=== PATIENT | male | born 2000 | race Two or more races ===

== ENCOUNTER 2018-03-11 06:52 | Emergency (ER) | payer SELFPAY ==
[~2018-03-11] VITALS: Ht 177.8 cm; Wt 79.8 kg
[~2018-03-11 06:52] MED LIST: ACET325T53 MC
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
--- NOTE | 2018-03-11 07:14 | NUR ---
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
--- NOTE | 2018-03-11 07:15 | NUR ---
ENDORSED TO JOSE MONTAGUE. STABLE CONDTION. VSS. NAD
[2018-03-11] MEDS ORDERED: ACETAMINOPHEN ES 500 MG TABLET PO ONE (07:30)
[2018-03-11] MEDS ORDERED: ACETAMINOPHEN ES 500 MG TABLET ONE (07:39)
--- NOTE | 2018-03-11 07:45 | NUR ---
TOMÁS AT TO INTERVIEW PT.
--- NOTE | 2018-03-11 07:54 | NUR ---
TOMÁS HARRELL ([facility] #[id number]) AT
--- NOTE | 2018-03-11 08:30 | NUR ---
DPatient discharged to home in stable condition. Written and verbal after care instructions given. Patient verbalizes understanding of instruction.
[2018-03-11 08:50] VITALS: BP 128/75
== END 2018-03-11 08:53 | disposition home or self-care (01) ==
LOC: ER 06:55
DX: S02.652A Fracture of angle of left mandible, initial encounter for closed fracture (principal); W50.0XXA Accidental hit or strike by another person, initial encounter; Y93.89 Activity, other specified; Y92.29 Other specified public building as the place of occurrence of the external cause; Y99.8 Other external cause status
CPT/HCPCS: 70486; 99284; A4606; Z7610

== ENCOUNTER 2018-05-30 18:35 | Emergency (ER) | payer MEDICAID, OTHER ==
[~2018-05-30] VITALS: Ht 177.8 cm; Wt 78.9 kg
[2018-05-30 19:20] LABS: BASOPHILS % (AUTO) 0.2 % (0.0-2.0); EOSINOPHILS % (AUTO) 0.8 % (0.0-6.0); HEMATOCRIT 45 % (39-51); HEMOGLOBIN 15.3 g/dL (13.5-17.5); LYMPHOCYTES # (AUTO) 1.4 /CMM (0.8-4.8); LYMPHOCYTES % (AUTO) 17.6 % (20.0-44.0); MEAN CORPUSCULAR HGB CONC 34 g/dl (31.0-36.0); MEAN CORPUSCULAR VOLUME 88 fL (80-96); MONOCYTES # (AUTO) 0.5 /CMM (0.1-1.30); MONOCYTES % (AUTO) 6.6 % (2.0-12.0); NEUTROPHILS % (AUTO) 74.8 % (43.0-81.0); PLATELET COUNT (AUTO) 218 /CMM (150-450); RDW COEFFICIENT OF VARIATION 12.5 (11.5-15.0)
[2018-05-30 19:27] LABS: CALCIUM, SERUM 9.1 mg/dL (8.5-10.1)
[2018-05-30] MEDS ORDERED: IV NS 0.9% 1,000 ML BAG IV ONE (19:30)
[2018-05-30] MEDS ORDERED: ACETAMINOPHEN 325 MG TABLET PO ONE (19:30)
--- NOTE | 2018-05-30 19:30 | NUR ---
IV #20G LEFT AC, NOTED WITH GOOD VENOUS RETURN
[2018-05-30 19:33] LABS: ALBUMIN 4.2 g/dL (3.4-5.0); BILIRUBIN,DIRECT 0.1 mg/dL (0.0-0.2); BILIRUBIN,TOTAL 0.3 mg/dL (0.2-1.0); TOTAL PROTEIN, SERUM 7.1 g/dL (6.4-8.2)
[2018-05-30] MEDS ORDERED: IOHEXOL-300 100 ML VIAL IV ONE (19:41)
[2018-05-30] MEDS ORDERED: IV NS 0.9% 250 ML IV ONE (19:41)
[2018-05-30] MEDS ORDERED: CT SWABBABLE VALVE TRANS SET 1 EA INFUS.SET MC ONE (19:41)
--- NOTE | 2018-05-30 19:45 | NUR ---
PT FOR CT VIA [facility]
--- NOTE | 2018-05-30 19:55 | NUR ---
PATIENT BACK FROM CT
[2018-05-30] MEDS ORDERED: ACETAMINOPHEN 325 MG TABLET ONE (19:59)
--- NOTE | 2018-05-30 20:07 | NUR ---
PATIENT MEDICATED ORDERED
[2018-05-30 20:53] VITALS: BP 118/78
--- NOTE | 2018-05-30 20:55 | NUR ---
PATIENT DISCHARGED IN STABLE CONDITION, VERBALIZES UNDERSTANDING OF D/C ORDERS. COPIES OF LAB WORK AND CT SCAN GIVEN. PRESCRIPTION GIVEN. PATIENT AMBULATORY WITH STEADY GAIT
== END 2018-05-30 20:54 | disposition home or self-care (01) ==
LOC: ER 18:39
DX: J06.9 Acute upper respiratory infection, unspecified (principal); E86.0 Dehydration; R10.11 Right upper quadrant pain; R07.81 Pleurodynia; Z87.828 Personal history of other (healed) physical injury and trauma
CPT/HCPCS: 36415; 74177; 80048; 80076; 85025; 96360; 99285; A4606; J7030; J7050; Q9967; Z7610

== ENCOUNTER 2019-04-30 02:41 | Emergency (ER) | payer OTHER ==
[~2019-04-30] VITALS: Ht 180.3 cm; Wt 80.3 kg
[2019-04-30 02:56] VITALS: BP 124/76
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
[2019-04-30] MEDS ORDERED: KETOROLAC TROMETHAMINE INJ 60 MG/2 ML VIAL IM ONE ×2 (02:58→03:00)
--- NOTE | 2019-04-30 03:18 | NUR ---
RADIOLOGY AT BEDSIDE FOR XRAY
== END 2019-04-30 04:00 | disposition home or self-care (01) ==
LOC: ER 02:45
DX: S83.421A Sprain of lateral collateral ligament of right knee, initial encounter (principal); S83.411A Sprain of medial collateral ligament of right knee, initial encounter; F17.200 Nicotine dependence, unspecified, uncomplicated; Z98.890 Other specified postprocedural states; W18.39XA Other fall on same level, initial encounter; Y93.66 Activity, soccer; Y92.39 Other specified sports and athletic area as the place of occurrence of the external cause; Y99.8 Other external cause status
CPT/HCPCS: 29505; 73564; 96372; 99283; J1885

== ENCOUNTER 2024-03-14 18:11 | Emergency (ER) | payer MEDICAID, OTHER ==
[~2024-03-14] VITALS: Ht 177.8 cm; Wt 83.5 kg
[2024-03-14] MEDS: KETOROLAC TROMETHAMINE 15 MG/ML VIAL IM ONE (18:02)
[2024-03-14] MEDS ORDERED: KETOROLAC TROMETHAMINE 15 MG/ML VIAL ONE (18:59)
[2024-03-14] MEDS ORDERED: HYDR-4209 PO (20:54)
[2024-03-14] MEDS ORDERED: IBUP-1955 PO (20:54)
[2024-03-14] MEDS ORDERED: ACET-2605 PO (20:54)
[2024-03-14] MEDS ORDERED: HYDROCODONE/APAP 5/325MG TABLET ONE (21:00)
[2024-03-14 21:01] VITALS: BP 132/81; TEMP 98; O2SAT 100
[2024-03-14] MEDS: HYDROCODONE/APAP 5/325MG TABLET PO ONE (21:03)
== END 2024-03-14 21:02 | disposition home or self-care (01) ==
LOC: ER 18:16
DX: J34.89 Other specified disorders of nose and nasal sinuses (principal); F17.200 Nicotine dependence, unspecified, uncomplicated; R51.9 Headache, unspecified
CPT/HCPCS: 99285; 70486; 96372; J1885